=== PATIENT | male | born 1995 | race Caucasian/White ===

== ENCOUNTER 2020-05-27 18:16 | Emergency (ER) | payer OTHER ==
[~2020-05-27 18:16] MED LIST: FLOMAX 0.4 MG0.4 MG PO
[2020-05-27 18:42] LABS: BASOPHIL 0.7 % (0-2); HCT 42.1 % (42.0-52.0); HGB 14.4 g/dl (13.2-18.0); MCH 31.6 pg (25.0-31.0); MCHC 34.2 g/dL (32.0-36.0); MCV 92.3 fL (78.0-100.0); MPV 9.4 fL (6.0-9.5); NEUTROPHIL 66.1 % (41-80); NRBC 0; PLT 170 K/uL (150-400); RBC 4.56 M/uL (4.70-6.00); RDW 12.6 % (11.5-14.0); WBC 8.2 K/uL (4.0-10.5)
[2020-05-27 18:54] LABS: INR 1.03 (0.9-1.2); PROTHROMBIN TIME 12.8 SECONDS (11.4-13.6); PTT 29.4 SECONDS (22.2-34.7)
[2020-05-27 19:00] LABS: ALBUMIN 4.6 g/dL (3.4-5.0); BILIRUBIN - TOTAL 2.5 mg/dL (0.2-1.0); BUN/CREAT RATIO (CALC) 20.7 RATIO; CREATININE 0.87 mg/dL (0.67-1.17); GLOBULIN (CALCULATION) 3.3 g/dL; POTASSIUM 3.3 mmol/L (3.5-5.1); TOTAL PROTEIN 7.9 g/dL (6.4-8.2)
[2020-05-27] MEDS ORDERED: PROTONIX 40MG T40 MG PO (21:51)
[2020-05-27] MEDS ORDERED: CARAFATE1 GM PO (21:51)
== END 2020-05-27 21:50 | disposition home or self-care (01) ==
LOC: FER 18:16
PROVIDERS: Emergency Medicine
DX: R07.89 Other chest pain (principal); R00.0 Tachycardia, unspecified; R10.13 Epigastric pain; R05 Cough; Z90.49 Acquired absence of other specified parts of digestive tract
CPT/HCPCS: 36415; 71045; 71250; 80053; 82550; 83690; 84484; 85025; 85379; 85610; 85730; 87339; 93005; J1885

== ENCOUNTER 2020-07-06 20:26 | Emergency (ER) | payer OTHER ==
[~2020-07-06 20:26] MED LIST changes: +CARAFATE1 GM PO; +PROTONIX 40MG T40 MG PO
[2020-07-06 22:12] LABS: EOSINOPHIL 2.7 % (0-5); HCT 43.6 % (42.0-52.0); HGB 15.2 g/dl (13.2-18.0); LYMPHOCYTE 32.2 % (15-48); MCH 32.5 pg (25.0-31.0); MCHC 34.9 g/dL (32.0-36.0); MCV 93.4 fL (78.0-100.0); MONOCYTE 9.1 % (0-12); MPV 9.3 fL (6.0-9.5); NEUTROPHIL 54.9 % (41-80); NRBC 0; PLT 204 K/uL (150-400); RBC 4.67 M/uL (4.70-6.00); RDW 12.5 % (11.5-14.0); WBC 7.1 K/uL (4.0-10.5)
[2020-07-06 22:26] LABS: INR 1.07 (0.9-1.2); PROTHROMBIN TIME 13.2 SECONDS (11.4-13.6); PTT 29.4 SECONDS (22.2-34.7)
[2020-07-06 22:31] LABS: ALBUMIN 4.2 g/dL (3.4-5.0); BILIRUBIN - TOTAL 1.2 mg/dL (0.2-1.0); BUN/CREAT RATIO (CALC) 17.9 RATIO; CREATININE 0.84 mg/dL (0.67-1.17); POTASSIUM 3.7 mmol/L (3.5-5.1); TOTAL PROTEIN 7.2 g/dL (6.4-8.2)
[2020-07-07] MEDS ORDERED: CYCLOBENZAPRINE10 MG PO (01:00)
[2020-07-07] MEDS ORDERED: IBUPROFEN800 MG PO (01:00)
== END 2020-07-07 01:11 | disposition hospice, home (50) ==
LOC: FER 20:26
PROVIDERS: Student in an Organized Health Care Education/Training Program
DX: M94.0 Chondrocostal junction syndrome [Tietze] (principal); Z20.822 Contact with and (suspected) exposure to COVID-19
CPT/HCPCS: 36415; 71045; 80053; 84484; 85025; 85610; 85730; 93005; U0002